=== PATIENT | male | born 1970 | race American Indian/Alaskan Native ===

== ENCOUNTER 2018-03-27 00:54 | Emergency (ER) | payer MEDICARE, MEDICAID ==
[2018-03-27 01:04] VITALS: BMI 38.3
--- NOTE | 2018-03-27 01:35 | ED PDOC ---
Arrival/HPI <Duc Talamantes - Last Filed: 03/27/18 01:58> <Muna Pedraza - Last Filed: 03/27/18 06:25> - General Chief Complaint: Allergic Reaction Time Seen by Provider: 03/27/18 00:59 - History of Present Illness Narrative History of Present Illness (Text): 48 year old with PMH of liver transplant in 2012 due to sarcoidosis, lisinopril medication for one month, HTN, HLD, and diabetes presents with facial swelling involving his lips and left jaw. Patient reports that he picked up an e- cigarette from under his car when his girlfriend dropped it, and he took one hit of the e cigarette around 7:00PM today. He reports that immediately after, he started to have some facial swelling. He did not eat any food prior to this episode but had some chicken after the swelling began. Patient takes tacrolimus for liver transplant. Patient denies any shortness of breath, stridor, swelling , skin rashes, chest pain, heart palpitations, nausea, vomiting, constipation, diarrhea, dysuria, and hematuria. He notes minimal numbness of the swollen area of his face. (Muna Pedraza) Past Medical History - Provider Review Nursing Documentation Reviewed: Yes - Cardiac Hx Cardiac Disorders: Yes Hx Hypertension: Yes - Pulmonary Hx Asthma: Yes - Neurological Hx Neurological Disorder: No - HEENT Hx HEENT Disorder: No - Endocrine/Metabolic Other/Comment: sarcoidosis;. hyperglycemia secondary to prednisone, condition resolved - Hematological/Oncological Hx Blood Disorders: No - Integumentary Hx Dermatological Disorder: No - Musculoskeletal/Rheumatological Hx Musculoskeletal Disorders: No - Gastrointestinal Hx Gastrointestinal Disorders: Yes Hx Liver Failure: Yes - Genitourinary/Gynecological Hx Genitourinary Disorders: No - Psychiatric Hx Psychophysiologic Disorder: No Hx Substance Use: No - Surgical History Hx Liver Transplant: Yes (2012) Hx Splenectomy: Yes Other/Comment: LIVER TRANSPLANT s/p sarcoidosis; HERNIA REPAIR. - Anesthesia Hx Anesthesia: Yes Hx Anesthesia Reactions: No - Suicidal Assessment Feels Threatened In Home Enviroment: No <Muna Pedraza - Last Filed: 03/27/18 06:25> Family/Social History - Physician Review Nursing Documentation Reviewed: Yes Family/Social History: Unknown Family HX Smoking Status: Never Smoked Hx Alcohol Use: No (quit social drinking) Hx Substance Use: No <KianeverettmarleneRajeevdai - Last Filed: 03/27/18 06:25> Allergies/Home Meds <JohannyeddDuc - Last Filed: 03/27/18 01:58> <KianeverettmarleneDenisamanju - Last Filed: 03/27/18 06:25> Allergies/Adverse Reactions: Allergies Iodinated Contrast- Oral and IV Dye [Iodinated Contrast Media - IV Dye] Allergy (Verified 03/27/18 01:04) ANAPHYLAXIS Home Medications: Home Meds Medication Instructions Recorded Confirmed Albuterol Sulfate [Proair Hfa] 2 puff NEB PRN PRN 11/04/14 01/06/15 Mycophenolate [Cellcept Cap] 250 mg PO BID 11/04/14 01/06/15 Pravastatin Sodium [Pravastatin] 80 mg PO DAILY 11/04/14 01/06/15 Prednisone [Prednisone] 2 mg PO 2XW 11/04/14 01/06/15 Tacrolimus [Tacrolimus] 1 mg PO BID 11/04/14 01/06/15 amLODIPine [Norvasc] 5 mg PO DAILY 11/04/14 01/06/15 Review of Systems - Physician Review All systems were reviewed & negative as marked: Yes - Review of Systems Constitutional: Normal Eyes: Normal ENT: Other (swelling of both lips and left jaw) Respiratory: Normal. absent: SOB, Cough (no cough, no SOB) Cardiovascular: Normal Gastrointestinal: Normal Musculoskeletal: Normal Skin: Normal Neurological: Normal <KeilaDenisamanju - Last Filed: 03/27/18 06:25> Physical Exam <VinitaDuc - Last Filed: 03/27/18 01:58> Vital Signs Reviewed: Yes Temperature: Afebrile Blood Pressure: Normal Pulse: Regular Respiratory Rate: Normal Appearance: Positive for: Well-Appearing Pain Distress: Mild Mental Status: Positive for: Alert and Oriented X 3 - Systems Exam Head: Present: Atraumatic, Normocephalic Pupils: Present: PERRL Extroacular Muscles: Present: EOMI Mouth: Present: Normal Tounge, Other (swollen left jaw). No: Drooling, Normal Lips (swollen lips) Pharnyx: No: TONSILS ENLARGED, Peritonsilar Swelling, Muffled/Hoarse Voice, Strider Nose (External): Present: Atraumatic Neck: Present: Normal Range of Motion Respiratory/Chest: Present: Clear to Auscultation, Good Air Exchange Cardiovascular: Present: Regular Rate and Rhythm Abdomen: Present: Normal Bowel Sounds, Scars (upper abdomen from liver transplant surgery). No: Tenderness, Distention Upper Extremity: Present: Normal Inspection, Normal ROM, NORMAL PULSES Lower Extremity: Present: Normal Inspection, NORMAL PULSES, Normal ROM Neurological: Present: GCS=15, CN II-XII Intact, Speech Normal, Motor Func Grossly Intact, Normal Sensory Function Skin: Present: Other (inflammation of lips and left side of face) Psychiatric: Present: Alert, Oriented x 3 <Muna Pedraza - Last Filed: 03/27/18 06:25> Vital Signs Temp Pulse Resp BP Pulse Ox 03/27/18 05:56 76 18 117/70 98 03/27/18 01:56 98.9 F 97 H 18 137/92 H 100 Medical Decision Making <Duc Talamantes - Last Filed: 03/27/18 01:58> <Muna Pedraza - Last Filed: 03/27/18 06:25> ED Course and Treatment: 03/27/18 01:58 Dustin Gamez is a 48 year old male who presents to the emergency department with a complaint of facial swelling. In agreement with resident note, which includes further HPI details. Patient was seen and evaluated with resident, came up with plan and treatment together. (Duc Talamantes) Impression: 48 year old male presents with swollen lips and left sided facial pain. Assessment: Grant inhibitor induced angioedema Rule out allergies, other causes of angioedema. Doubt anaphylaxis. Plan: Atarax 25 mg has been prescribed to reduce the swelling. Once he has taken the medication, he will be reevaluated for improvement. 03/27/18 04:16 Atarax did not seem to improve symptoms. Benadryl and pepcid did not relieve symptoms either. After extensive discussion with patient, we will start methylprednisone 125 mg to help reduce the swelling. 03/27/18 06:22 Patient's symptoms have mildly improved. Patient will be discharged with prednisone 20 TID, pepcid 20 BID, and atarax 25 mg TID since he has not had any respiratory symptoms. Patient should follow up with his PCP and stop taking lisinopril. (Muna Pedraza) - Medication Orders Current Medication Orders: Discontinued Medications Diphenhydramine HCl (Benadryl) 25 mg IVP STAT STA Stop: 03/27/18 02:39 Last Admin: 03/27/18 02:57 Dose: 25 mg IVP Administration Document 03/27/18 02:57 SS (Rec: 03/27/18 02:57 SS [id number]) Charges for Administration # of IVP Administrations 1 Famotidine (Pepcid) 20 mg IVP STAT STA Stop: 03/27/18 02:41 Last Admin: 03/27/18 02:57 Dose: 20 mg IVP Administration Document 03/27/18 02:57 SS (Rec: 03/27/18 02:57 SS [id number]) Charges for Administration # of IVP Administrations 1 Hydroxyzine HCl (Atarax) 25 mg PO Q6H PRN PRN Reason: ANGIOEDEMA Hydroxyzine HCl (Atarax) 25 mg PO STAT STA Stop: 03/27/18 01:52 Last Admin: 03/27/18 01:35 Dose: 25 mg Methylprednisolone (Solu-Medrol) 125 mg IVP STAT STA Stop: 03/27/18 04:16 Last Admin: 03/27/18 04:40 Dose: 125 mg - Scribe Statement The provider has reviewed the documentation as recorded by the Scribe <Duc Talamantes - Last Filed: 03/27/18 01:58> - PA / HEALTH PROMOTION COORDINATOR / Resident Statement MD/DO has reviewed & agrees with the documentation as recorded. MD/DO has examined the patient and agrees with the treatment plan. <Muna Pedraza - Last Filed: 03/27/18 06:25> - Scribe Statement Fabiola Rivas Provider Scribe Attestation: All medical record entries made by the Scribe were at my direction and personally dictated by me. I have reviewed the chart and agree that the record accurately reflects my personal performance of the history, physical exam, medical decision making, and the department course for this patient. I have also personally directed, reviewed, and agree with the discharge instructions and disposition. (Duc Talamantes) Disposition/Present on Arrival <Duc Talamantes - Last Filed: 03/27/18 01:58> - Present on Arrival Any Indicators Present on Arrival: No History of DVT/PE: No History of Uncontrolled Diabetes: No Urinary Catheter: No History of Decub. 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 Your provider was Duc Talamantes MD and Muna Pedraza DO and you were treated for FACIAL SWELLING. The emergency medical care you received today was directed at your acute symptoms. You were diagnosed with angioedema due to taking lisinopril. You were given atarax 25 mg, pepcid, benadryl, and methylprednisone. It may take several days for your symptoms to resolve. Return to the Emergency Department if your symptoms worsen, do not improve, or if you have any other problems. Stop taking your lisinopril and please contact Dr. Campo for follow up appointment as soon as possible. You will be prescribed pepcid 20 mg twice a day for five days, prednisone 20 mg three times a day for five days, and atarax 25 mg three times a day for five days. Bring any paperwork you were given at discharge with you along with any medications you are taking to your follow up visit. Our treatment cannot replace ongoing medical care by a primary care provider outside of the emergency department. Thank you for allowing the [facility] team to be part of your care today. Prescriptions: Famotidine [Pepcid] 20 mg PO BID 5 Days #10 tab hydrOXYzine HCl [Atarax] 25 mg PO Q8H 5 Days #15 tab Prednisone [Deltasone] 20 mg PO TID 5 Days #15 tablet Referrals: Phuong Campo DO [[facility]] - Follow up with primary Forms: N[employer] PDF (Wallisian)
[2018-03-27 01:57] VITALS: RESP 18; TEMP 98.9
[2018-03-27] MEDS ORDERED: DiphenhydrAMINE 50 mg/ml Inj IVP STA (02:38)
[2018-03-27 05:57] VITALS: BP 117/70; O2SAT 98
[2018-03-27 06:32] VITALS: PULSE 71
== END 2018-03-27 06:31 | disposition home or self-care (01) ==
LOC: ED 00:54
DX: T78.3XXA Angioneurotic edema, initial encounter (principal); T46.4X5A Adverse effect of angiotensin-converting-enzyme inhibitors, initial encounter; Y92.9 Unspecified place or not applicable; Z94.4 Liver transplant status
CPT/HCPCS: 96374; 96375; 99283; J1200; J2930

== ENCOUNTER 2019-01-07 18:19 | Inpatient (IN) | payer OTHER ==
[2019-01-07 18:20] VITALS: BMI 38.3
--- NOTE | 2019-01-07 18:50 | ED PDOC ---
Arrival/HPI - General Chief Complaint: Dental Pain Time Seen by Provider: 01/07/19 18:31 Historian: Patient - History of Present Illness Narrative History of Present Illness (Text): 01/07/19 18:45 48 year old male whose past medical history includes liver transplant in 2012 due to sarcoidosis, HTN on lisinopril, HLD, and diabetes presents complaining of lower lip swelling that began today. Patient reports he bit his lip twice today before noticing the swelling. Patient reports he had similar symptoms in the past. Per past notes from previous visit 03/27/18, patient was seen for facial swelling involving this lips and left jaw where he has been taking Lisinopril for one month. Patient was diagnosed with angioedema and told to discontinue taking lisinopril. Patient denies any fever, chills, chest pain, shortness of breath, nausea, vomiting, diarrhea, urinary symptoms, back pain, neck pain, headache, dizziness, or any other complaints. PMD: Dr. Campo Time/Duration: Other (today) Symptom Onset: Gradual Symptom Course: Unchanged Activities at Onset: Light Past Medical History - Provider Review Nursing Documentation Reviewed: Yes Primary Care Provider: Phuong Campo V - Infectious Disease Hx of Infectious Diseases: None - Cardiac Hx Cardiac Disorders: Yes Hx Hypertension: Yes - Pulmonary Hx Asthma: Yes - Neurological Hx Neurological Disorder: No - HEENT Hx HEENT Disorder: No - Endocrine/Metabolic Other/Comment: sarcoidosis;. hyperglycemia secondary to prednisone, condition resolved - Hematological/Oncological Hx Blood Disorders: No - Integumentary Hx Dermatological Disorder: No - Musculoskeletal/Rheumatological Hx Musculoskeletal Disorders: No - Gastrointestinal Hx Gastrointestinal Disorders: Yes Hx Liver Failure: Yes - Genitourinary/Gynecological Hx Genitourinary Disorders: No - Psychiatric Hx Psychophysiologic Disorder: No Hx Substance Use: No - Surgical History Hx Liver Transplant: Yes (2012) Hx Splenectomy: Yes Other/Comment: LIVER TRANSPLANT s/p sarcoidosis; HERNIA REPAIR. Splenectomy - Anesthesia Hx Anesthesia: Yes Hx Anesthesia Reactions: No - Suicidal Assessment Feels Threatened In Home Enviroment: No Family/Social History - Physician Review Nursing Documentation Reviewed: Yes Family/Social History: No Known Family HX Smoking Status: Never Smoked Hx Alcohol Use: No (quit social drinking) Hx Substance Use: No Allergies/Home Meds Allergies/Adverse Reactions: Allergies Iodinated Contrast- Oral and IV Dye [Iodinated Contrast Media - IV Dye] Allergy (Verified 01/07/19 18:27) ANAPHYLAXIS Home Medications: Home Meds Medication Instructions Recorded Confirmed Albuterol Sulfate [Proair Hfa] 2 puff NEB PRN PRN 11/04/14 01/06/15 Mycophenolate [Cellcept Cap] 250 mg PO BID 11/04/14 01/06/15 Pravastatin Sodium [Pravastatin] 80 mg PO DAILY 11/04/14 01/06/15 Prednisone 2 mg PO 2XW 11/04/14 01/06/15 Tacrolimus 1 mg PO BID 11/04/14 01/06/15 amLODIPine [Norvasc] 5 mg PO DAILY 11/04/14 01/06/15 Review of Systems - Physician Review All systems were reviewed & negative as marked: Yes - Review of Systems Constitutional: absent: Fevers, Other (chills) Respiratory: absent: SOB Cardiovascular: absent: Chest Pain Gastrointestinal: absent: Diarrhea, Nausea, Vomiting Genitourinary Male: absent: Dysuria, Frequency, Hematuria Musculoskeletal: absent: Back Pain, Neck Pain Skin: Other (swelling to the lower lips) Neurological: absent: Headache, Dizziness Physical Exam Vital Signs Reviewed: Yes Vital Signs Temp Pulse Resp BP Pulse Ox 01/07/19 18:30 98.3 F 89 18 139/84 97 Temperature: Afebrile Blood Pressure: Normal Pulse: Regular Respiratory Rate: Normal Appearance: Positive for: Well-Appearing, Non-Toxic, Comfortable Pain Distress: None Mental Status: Positive for: Alert and Oriented X 3 - Systems Exam Head: Present: Atraumatic, Normocephalic, Swelling (swelling to the left lower lip) Pupils: Present: PERRL Extroacular Muscles: Present: EOMI Conjunctiva: Present: Normal Mouth: Present: Moist Mucous Membranes Pharnyx: No: Other (swelling) Neck: Present: Normal Range of Motion Respiratory/Chest: Present: Clear to Auscultation, Good Air Exchange. No: Respiratory Distress, Accessory Muscle Use Cardiovascular: Present: Regular Rate and Rhythm, Normal S1, S2. No: Murmurs Abdomen: No: Tenderness, Distention, Peritoneal Signs Back: Present: Normal Inspection Upper Extremity: Present: Normal Inspection. No: Cyanosis, Edema Lower Extremity: Present: Normal Inspection. No: Edema Neurological: Present: GCS=15, Speech Normal Skin: Present: Warm, Dry, Normal Color. No: Rashes Psychiatric: Present: Alert, Oriented x 3, Normal Insight, Normal Concentration Medical Decision Making ED Course and Treatment: 01/07/19 18:54 Impression: 48 year old male presents complaining of lower left lip pain that began today Plan: -- Benadryl. Pepcid, Prednisone tab -- Reassess and disposition Prior Visits: Notes and results from previous visits were reviewed. Progress Notes: Patient refuses IV medication. Advised patient again to stop taking lisinopril. 01/07/19 20:44 pt now agrees to iv, and further obs and swelling unchanges. still phonating well in ner. seen by icu not candidate. 01/07/19 20:[address] updated pmd k normal stable for floor. - Medication Orders Current Medication Orders: Discontinued Medications Diphenhydramine HCl (Benadryl) 50 mg PO STAT STA Stop: 01/07/19 18:39 Famotidine (Pepcid) 20 mg PO STAT STA Stop: 01/07/19 18:39 Prednisone (Prednisone Tab) 50 mg PO STAT STA Stop: 01/07/19 18:39 - Scribe Statement The provider has reviewed the documentation as recorded by the Jerrod Pathak Provider Scribe Attestation: All medical record entries made by the Amandeepibmarlene were at my direction and personally dictated by me. I have reviewed the chart and agree that the record accurately reflects my personal performance of the history, physical exam, medical decision making, and the department course for this patient. I have also personally directed, reviewed, and agree with the discharge instructions and disposition. Disposition/Present on Arrival - Present on Arrival Any Indicators Present on Arrival: No History of DVT/PE: No History of Uncontrolled Diabetes: No Urinary Catheter: No History of Decub. Ulcer: No History Surgical Site Infection Following: None - Disposition Have Diagnosis and Disposition been Completed?: Yes Diagnosis: Renal insufficiency, Angioedema Disposition: HOSPITALIZED Disposition Time: 20:00 Condition: STABLE
[2019-01-07 20:29] LABS: BASO # 0.04 K/mm3 (0.0-2.0); BASO % 0.4 % (0.0-3.0); EOS # 0.4 (0.0-0.7); HEMOGLOBIN 12.5 g/dL (14.0-18.0); LYMPH # 4.6 (1.2-3.4); LYMPH % 43.1 % (22.0-35.0); MEAN CELL VOLUME 88.6 fl (80.0-105.0); MEAN CORPUSCULAR HEMOGLOBIN 29.6 pg (25.0-35.0); MEAN CORPUSCULAR HGB CONC 33.4 g/dl (31.0-37.0); MEAN PLATELET VOLUME 10.7 fl (7.0-11.0); MONO # 0.6 (0.1-0.6); MONO % 5.5 % (1.0-6.0); RBC 4.22 10^6/uL (3.5-6.1); RED CELL DISTRIBUTION WIDTH 14.9 % (11.5-14.5); WHITE BLOOD COUNT 10.7 10^3/uL (4.5-11.0)
[2019-01-07 20:39] LABS: ALB/GLOB RATIO 1.3 (1.1-1.8); ALBUMIN 4.3 g/dL (3.0-4.8); CALCIUM 9.1 mg/dL (8.4-10.5)
[2019-01-07 20:40] LABS: INR 0.9
--- NOTE | 2019-01-07 21:43 | CP.PCM.CON ---
<Jeromy Hawkins - Last Filed: 01/07/19 22:01> History of Present Illness - History of Present Illness History of Present Illness: Jeromy Hawkins DO PGY-1 ICU Consult Note for Dr. Ro Reason for consult: lower lip angioedema 48 y/o male with PMH of liver transplant in 2012 due to sarcoidosis, HTN on lisinopril, HLD, DM2 presents with left lower lip swelling that began today. Patient reports that he bite his lower lip today and went for a nap then woke up with lower lip swelling. He denies stridor, SOB, CP, speech difficulty, sore throat. Patient is on lisinopril daily for HTN. As per EMR, patient had similar episode last year and discharged home from ED with PO steroids. He denies dizziness, palpitations, fever, chills, neck stiffness, GI/ symptoms, recent sickness/sick contacts. In the ED: Patient received Benadryl 50, Pepcid, Prednisone 50 tab. Patient refuses IV medi cation. Vitals stable, patient asymptomatic 12 points ROS reviewed and otherwise negative PMHx: as above PSHx: liver transplant, splenectomy, hernia repair FH: father- germ cell tumor, DM Soc: denies ETOH, tobacco, illicit drug use Allergies: iodinated contrast Home Rx: as per EMR Past Patient History - Infectious Disease Hx of Infectious Diseases: None - Past Social History Smoking Status: Never Smoked - CARDIAC Hx Cardiac Disorders: Yes Hx Hypertension: Yes - PULMONARY Hx Asthma: Yes - NEUROLOGICAL Hx Neurological Disorder: No - HEENT Hx HEENT Problems: No - ENDOCRINE/METABOLIC Other/Comment: sarcoidosis;. hyperglycemia secondary to prednisone, condition resolved - HEMATOLOGICAL/ONCOLOGICAL Hx Blood Disorders: No - INTEGUMENTARY Hx Dermatological Problems: No - MUSCULOSKELETAL/RHEUMATOLOGICAL Hx Musculoskeletal Disorders: No - GASTROINTESTINAL Hx Gastrointestinal Disorders: Yes Hx Liver Failure: Yes - GENITOURINARY/GYNECOLOGICAL Hx Genitourinary Disorders: No - PSYCHIATRIC Hx Psychophysiologic Disorder: No Hx Substance Use: No - SURGICAL HISTORY Hx Liver Transplant: Yes (2012) Hx Splenectomy: Yes Other/Comment: LIVER TRANSPLANT s/p sarcoidosis; HERNIA REPAIR. Splenectomy - ANESTHESIA Hx Anesthesia: Yes Hx Anesthesia Reactions: No Meds Allergies/Adverse Reactions: Allergies Allergy/AdvReac Type Severity Reaction Status Date / Time Iodinated Contrast- Oral and Allergy ANAPHYLAXIS Verified 01/07/19 18:27 IV Dye [Iodinated Contrast Media - IV Dye] lisinopril Allergy ANGIOEDEMA Verified 01/08/19 07:21 Physical Exam - Constitutional Appears: Well, Non-toxic, No Acute Distress - Head Exam Head Exam: ATRAUMATIC, NORMAL INSPECTION, NORMOCEPHALIC Additional comments: left lower lip swelling. no oropharyngeal edema. no tongue edema - Eye Exam Eye Exam: EOMI, Normal appearance, PERRL Pupil Exam: NORMAL ACCOMODATION, PERRL - ENT Exam ENT Exam: Mucous Membranes Moist, Normal Exam - Neck Exam Neck exam: Positive for: Full Rom, Normal Inspection. Negative for: Lym phadenopathy, Thyromegaly - Respiratory Exam Respiratory Exam: Clear to Auscultation Bilateral, NORMAL BREATHING PATTERN. absent: Rales, Rhonchi, Wheezes, Respiratory Distress, Stridor - Cardiovascular Exam Cardiovascular Exam: REGULAR RHYTHM, +S1, +S2. absent: Gallop, Rubs - GI/Abdominal Exam GI & Abdominal Exam: Normal Bowel Sounds, Soft. absent: Guarding, Mass, Rebound, Tenderness - Extremities Exam Extremities exam: Positive for: normal inspection - Back Exam Back exam: NORMAL INSPECTION - Neurological Exam Neurological exam: Alert, CN II-XII Intact, Normal Gait, Oriented x3, Reflexes Normal - Psychiatric Exam Psychiatric exam: Normal Affect, Normal Mood - Skin Skin Exam: Dry, Intact, Normal Color, Warm Additional comments: lower lip swelling Results - Vital Signs Recent Vital Signs: Last Vital Signs Temp 98.3 F 01/07/19 18:30 Pulse 76 01/07/19 20:07 Resp 18 01/07/19 20:07 BP 156/97 H 01/07/19 20:07 Pulse Ox 99 01/07/19 20:07 - Labs Result Diagrams: 01/07/19 20:24 01/07/19 20:24 Labs: Laboratory Results - last 24 hr 01/07/19 01/07/19 01/07/19 20:24 20:24 20:24 WBC 10.7 RBC 4.22 Hgb 12.5 L Hct 37.4 L MCV 88.6 MCH 29.6 MCHC 33.4 RDW 14.9 H Plt Count 449 MPV 10.7 Neut % (Auto) 47.0 L Lymph % (Auto) 43.1 H Villalba % (Auto) 5.5 Eos % (Auto) 4.0 Baso % (Auto) 0.4 Lymph # (Auto) 4.6 H Villalba # (Auto) 0.6 Eos # (Auto) 0.4 Baso # (Auto) 0.04 Absolute Neuts (auto) 5.00 INR 0.90 APTT 37.9 Sodium 138 Potassium 4.6 Chloride 106 Carbon Dioxide 23 Anion Gap 14 BUN 43 H Creatinine 2.6 H Est GFR ( Amer) 32 Est GFR (Non-Af Amer) 27 Random Glucose 92 Calcium 9.1 Total Bilirubin 0.5 AST 39 ALT 15 Alkaline Phosphatase 56 Total Protein 7.7 Albumin 4.3 Globulin 3.4 Albumin/Globulin Ratio 1.3 Assessment & Plan - Assessment and Plan (Free Text) Assessment: 48 y/o male with PMH of liver transplant in 2012 due to sarcoidosis, HTN on lisinopril, HLD, DM2 presents with left lower lip swelling x1 day. Plan: Left lower lip angioedema: -patient on lisinopril, hemodynamically stable, no tongue/oropharngeal edema, no stridor, no SOB -received benadryl 50, oral prednisone 50. refused IV steroids -recommend allergy testing as outpatient for JUAN CARLOS/ARB sensitivity and C1-esterase inhibitor -continue to observe on the floor. patient does not need ICU at this time. -please re-consult if needed. Case reviewed and plan discussed with attending Dr Jayjay Hawkins, <Nick Ro - Last Filed: 01/09/19 06:03> Results - Vital Signs Recent Vital Signs: Last Vital Signs Temp 97.7 F 01/08/19 14:00 Pulse 84 01/08/19 14:00 Resp 20 01/08/19 14:00 BP 135/80 01/08/19 14:00 Pulse Ox 94 L 01/08/19 14:00 - Labs Result Diagrams: 01/07/19 20:24 01/07/19 20:24 Attending/Attestation - Attestation I have personally seen and examined this patient.: Yes I have fully participated in the care of the patient.: Yes I have reviewed all pertinent clinical information: Yes Notes (Text): 01/09/19 06:01 Seen and examined. Discussed with resident. Does not meet ICU admission criteria at this time. add JUAN CARLOS I and ARB to allergy list.
[2019-01-07 22:00] LABS: PARTIAL THROMBOPLASTIN TIME 37.9 Seconds (26.9-38.3)
[2019-01-08] MEDS ORDERED: DiphenhydrAMINE 50 mg/ml Inj IVP ONE (02:11)
[2019-01-08 07:50] VITALS: RESP 20; TEMP 97.7
[2019-01-08] MEDS ORDERED: Metoprolol Succinate 25 mg XL Tab PO SCH (10:00)
[2019-01-08] MEDS ORDERED: Magnesium Oxide 400 mg Tab UD PO SCH (10:00)
[2019-01-08] MEDS ORDERED: MethylPREDNISolone 40 mg Vial IVP ONE (13:00)
--- NOTE | 2019-01-08 15:41 | CP.PCM.HP ---
<Petr Whiting - Last Filed: 01/08/19 15:28> History of Present Illness - History of Present Illness History of Present Illness: H&P for Dr. Gaspar Service CC: Lip swelling HPI: 49 M with a PMHx of sarcoidosis, liver transplant on immunosuppressants, CKD 3, HTN, HLD, DM2 with neuropathy presented to the [facility] ED with complaints of lower lip swelling. Patient states that he has had this reaction before, however was more sever previously. Patient noted that he bit his lip yesterday while eating, noticed his lower lip swell mildly, took a nap and woke up to the entirety of his lower lip being swollen. He noted that he was previously stopped on his lisinopril after his last episode of angioedema, and started on norvasc. However, was restarted on lisinopril by a wrapper cashier he is unsure of roughly a month an a half ago. Patient admitted to pruritis, however denied fever, chills shortness of breath, chest pains, nausea, vomiting, diarrhea, constipation or dysuria. PMHx: sarcoidosis, liver transplant on immunosuppressants, CKD 3, HTN, HLD, DM2 with neuropathy, angioedema PSHx: Liver transplant SHx: Denied tobacco/etoh/ or illicit drug use Famhx: Father-germ cell tumor Meds: MAR Reviewed Alergies: Lisinopril, iodinated contract Present on Admission - Present on Admission Any Indicators Present on Admission: No Review of Systems - Review of Systems Review of Systems: as per HPI otherwise negative Past Patient History - Infectious Disease Hx of Infectious Diseases: None - Past Social History Smoking Status: Never Smoked - CARDIAC Hx Cardiac Disorders: Yes Hx Hypertension: Yes - PULMONARY Hx Asthma: Yes - NEUROLOGICAL Hx Neurological Disorder: No - HEENT Hx HEENT Problems: No - RENAL Hx Chronic Kidney Disease: No - ENDOCRINE/METABOLIC Hx Endocrine Disorders: Yes Other/Comment: sarcoidosis;. hyperglycemia secondary to prednisone, condition resolved - HEMATOLOGICAL/ONCOLOGICAL Hx Blood Disorders: No - INTEGUMENTARY Hx Dermatological Problems: No - MUSCULOSKELETAL/RHEUMATOLOGICAL Hx Musculoskeletal Disorders: No Hx Falls: No - GASTROINTESTINAL Hx Gastrointestinal Disorders: Yes Hx Liver Failure: Yes Other/Comment: liver transplant 2013 - GENITOURINARY/GYNECOLOGICAL Hx Genitourinary Disorders: No - PSYCHIATRIC Hx Psychophysiologic Disorder: No Hx Substance Use: No - SURGICAL HISTORY Hx Liver Transplant: Yes (2012) Hx Splenectomy: Yes Other/Comment: LIVER TRANSPLANT s/p sarcoidosis; HERNIA REPAIR. Splenectomy - ANESTHESIA Hx Anesthesia: Yes Hx Anesthesia Reactions: No Meds Home Medications: Home Medication List Medication Instructions Recorded Confirmed Type Famotidine [Pepcid] 20 mg PO BID tab 01/08/19 Rx Gabapentin [Neurontin] 300 mg PO TID PRN cap 01/08/19 Rx Glimepiride [amaRYL] 1 mg PO QPM tab 01/08/19 Rx Glimepiride [amaRYL] 2 mg PO QAM tab 01/08/19 Rx Mycophenolate [Cellcept Cap] 250 mg PO BID cap 01/08/19 Rx Tacrolimus [Prograf Cap] 1 mg PO QPM cap 01/08/19 Rx Tacrolimus [Prograf Cap] 2 mg PO QAM cap 01/08/19 Rx amLODIPine [Norvasc] 5 mg PO DAILY #30 tab 01/08/19 Rx Allergies/Adverse Reactions: Allergies Allergy/AdvReac Type Severity Reaction Status Date / Time Iodinated Contrast- Oral and Allergy ANAPHYLAXIS Verified 01/07/19 18:27 IV Dye [Iodinated Contrast Media - IV Dye] lisinopril Allergy ANGIOEDEMA Verified 01/08/19 07:21 Physical Exam - Constitutional Appears: No Acute Distress - Head Exam Head Exam: ATRAUMATIC, NORMAL INSPECTION, NORMOCEPHALIC - Eye Exam Eye Exam: EOMI, Normal appearance, PERRL Pupil Exam: NORMAL ACCOMODATION, PERRL - ENT Exam ENT Exam: Mucous Membranes Moist, Normal Exam Additional comments: + lower lip swelling - Neck Exam Neck exam: Positive for: Normal Inspection - Respiratory Exam Respiratory Exam: Clear to Auscultation Bilateral, NORMAL BREATHING PATTERN. absent: Rhonchi, Wheezes, Respiratory Distress, Stridor - Cardiovascular Exam Cardiovascular Exam: REGULAR RHYTHM, +S1, +S2 - GI/Abdominal Exam GI & Abdominal Exam: Normal Bowel Sounds, Soft. absent: Tenderness - Neurological Exam Neurological exam: Alert, CN II-XII Intact, Normal Gait, Oriented x3, Reflexes Normal - Psychiatric Exam Psychiatric exam: Normal Affect, Normal Mood - Skin Skin Exam: Dry, Intact, Normal Color, Warm Results - Vital Signs Recent Vital Signs: Last Vital Signs Temp 97.7 F 01/08/19 06:00 Pulse 92 H 01/08/19 06:00 Resp 20 01/08/19 06:00 BP 121/56 L 01/08/19 12:52 Pulse Ox 97 01/08/19 06:00 - Labs Result Diagrams: 01/07/19 20:24 01/07/19 20:24 Labs: Laboratory Results - last 24 hr 01/07/19 01/07/19 01/07/19 20:24 20:24 20:24 WBC 10.7 RBC 4.22 Hgb 12.5 L Hct 37.4 L MCV 88.6 MCH 29.6 MCHC 33.4 RDW 14.9 H Plt Count 449 MPV 10.7 Neut % (Auto) 47.0 L Lymph % (Auto) 43.1 H Mclean % (Auto) 5.5 Eos % (Auto) 4.0 Baso % (Auto) 0.4 Lymph # (Auto) 4.6 H Mclean # (Auto) 0.6 Eos # (Auto) 0.4 Baso # (Auto) 0.04 Absolute Neuts (auto) 5.00 PT 10.0 INR 0.90 APTT 37.9 Sodium 138 Potassium 4.6 Chloride 106 Carbon Dioxide 23 Anion Gap 14 BUN 43 H Creatinine 2.6 H Est GFR ( Amer) 32 Est GFR (Non-Af Amer) 27 Random Glucose 92 Calcium 9.1 Total Bilirubin 0.5 AST 39 ALT 15 Alkaline Phosphatase 56 Total Protein 7.7 Albumin 4.3 Globulin 3.4 Albumin/Globulin Ratio 1.3 Assessment & Plan - Assessment and Plan (Free Text) Assessment: angioedema 2/2 lisinopril liver transplant on immunosuppressants Sarcoidosis CKD 3 HTN HLD DM2 with neuropathy anemia Plan: Patient is comfortable, with improving lower lip swelling. Patient started on antihistamine and steroid therapy with good effect. Patient discontinued lisinopril, continue norvasc and metoprolol for HTN. Patient is to continue prograf and mycophenolate s/p liver transplant 2/2 sarcoidosis. Patient's CKD is stable, may be exacerbated by prograf. Atorvastatin for dyslipidemia, Patient on gabapentin for diabetic neuropathy and on glipizide for DM, metformin held. Anemia likely 2/2 CKD. <Hudson Gaspar - Last Filed: 01/08/19 16:19> Results - Vital Signs Recent Vital Signs: Last Vital Signs Temp 97.7 F 01/08/19 14:00 Pulse 84 01/08/19 14:00 Resp 20 01/08/19 14:00 BP 135/80 01/08/19 14:00 Pulse Ox 94 L 01/08/19 14:00 - Labs Result Diagrams: 01/07/19 20:24 01/07/19 20:24 Labs: Laboratory Results - last 24 hr 01/07/19 01/07/19 01/07/19 20:24 20:24 20:24 WBC 10.7 RBC 4.22 Hgb 12.5 L Hct 37.4 L MCV 88.6 MCH 29.6 MCHC 33.4 RDW 14.9 H Plt Count 449 MPV 10.7 Neut % (Auto) 47.0 L Lymph % (Auto) 43.1 H Mclean % (Auto) 5.5 Eos % (Auto) 4.0 Baso % (Auto) 0.4 Lymph # (Auto) 4.6 H Mclean # (Auto) 0.6 Eos # (Auto) 0.4 Baso # (Auto) 0.04 Absolute Neuts (auto) 5.00 PT 10.0 INR 0.90 APTT 37.9 Sodium 138 Potassium 4.6 Chloride 106 Carbon Dioxide 23 Anion Gap 14 BUN 43 H Creatinine 2.6 H Est GFR ( Amer) 32 Est GFR (Non-Af Amer) 27 Random Glucose 92 Calcium 9.1 Total Bilirubin 0.5 AST 39 ALT 15 Alkaline Phosphatase 56 Total Protein 7.7 Albumin 4.3 Globulin 3.4 Albumin/Globulin Ratio 1.3 Assessment & Plan - Assessment and Plan (Free Text) Assessment: Pt seen and examined by me. I have reviewed the note of the medical billing and coding specialist and I agree with it. I have discussed the assessment and plan with the resident. I have reviewed the medications and the last labs. Pt with angioedema due to Lisiponril. Pt was advised to stop taking the medication. I have asked Dr Lozano to evaluate as she is her mounter smoking pipe. He has CKD-3. Pt is on Glipizide for his DM-2. He has hx of Liver Tx due to Sarcoidosis. He is on Norvasc for HTN. He has Diabetic neuropathy and is on Gabapentin.
[2019-01-08 16:17] VITALS: BP 135/80; PULSE 84; O2SAT 94
--- NOTE | 2019-01-09 04:39 | CON ---
DATE: 01/08/2019 REASON FOR CONSULTATION: Angioedema secondary to JUAN CARLOS inhibitor. HISTORY OF PRESENT ILLNESS: A 48-year-old young male presented to the emergency room yesterday with complaints of swelling of his lower lip. He reports that he was eating. He caught his lower lip. Subsequently 2 hours later, he noted that his whole lower lip was swollen. Swelling progressively increased. He came to the emergency room. He reports that something similar had happened to him in 03/2018 also. He was told to stop his JUAN CARLOS inhibitor, but his jewelry bench worker advised him to continue the JUAN CARLOS inhibitor and in fact increased the dose. He denies any difficulty breathing right now, but he did have some choking sensation earlier. In the emergency room, his blood pressure was 139/84 initially. His heart rate was 89. He was afebrile. His laboratory data showed BUN of 43 and creatinine of 2.6, unclear what his baseline creatinine is. His amlodipine was continued as 5 mg daily. His lisinopril was discontinued. PAST MEDICAL AND SURGICAL HISTORY: Severe hypertension, steroid-induced diabetes, sarcoidosis of the liver, liver transplant many years ago, chronic kidney disease stage III, and history of angioedema in 03/2018. FAMILY HISTORY: Hypertension. SOCIAL HISTORY: No smoking. No alcohol use. No IV drug abuse. ALLERGIES: LISINOPRIL. CURRENT MEDICATIONS: Amaryl 2 mg in a.m. and 1 mg in p.m., Benadryl 25, CellCept 500 b.i.d., aspirin 81, Lasix 20, Lipitor 10, gabapentin 300 t.i.d., amlodipine 5, Pepcid 20, Plavix 75, pravastatin, Prograf 2 mg in a.m. and 1 mg in p.m., and Solu-Medrol. ASSESSMENT: 1. Severe angioedema likely related to JUAN CARLOS inhibitor. 2. Hypertension. 3. History of liver transplant. 4. History of chronic kidney disease stage III. 5. Posttransplant diabetes. PLAN: 1. Agree with discontinuation of lisinopril. 2. Continue amlodipine. 3. Continue beta-viktoriya. 4. May need to increase dose of amlodipine to control blood pressure adequately. 5. Continue medications. 6. Steroid taper. 7. Continue antirejection meds. 8. Followup as outpatient. Kiera Lozano MD [facility] # [id number]
== END 2019-01-08 18:12 | disposition home or self-care (01) | DRG 916 ==
LOC: ED 18:19 → ERH 20:43 → 5RSO 22:55
PROVIDERS: ADMIT Internal Medicine Nephrology; ATTEND Internal Medicine Nephrology
DX: T78.3XXA Angioneurotic edema, initial encounter (principal); Z94.4 Liver transplant status; I10 Essential (primary) hypertension; E11.9 Type 2 diabetes mellitus without complications; D86.9 Sarcoidosis, unspecified; T38.0X5A Adverse effect of glucocorticoids and synthetic analogues, initial encounter; N28.9 Disorder of kidney and ureter, unspecified; D64.9 Anemia, unspecified; E09.9 Drug or chemical induced diabetes mellitus without complications; E11.22 Type 2 diabetes mellitus with diabetic chronic kidney disease; E11.40 Type 2 diabetes mellitus with diabetic neuropathy, unspecified; E78.5 Hyperlipidemia, unspecified; I12.9 Hypertensive chronic kidney disease with stage 1 through stage 4 chronic kidney disease, or unspecified chronic kidney disease; J45.909 Unspecified asthma, uncomplicated; K08.89 Other specified disorders of teeth and supporting structures; N18.3 Chronic kidney disease, stage 3 (moderate); S01.551A Open bite of lip, initial encounter; T46.4X5A Adverse effect of angiotensin-converting-enzyme inhibitors, initial encounter; Z79.84 Long term (current) use of oral hypoglycemic drugs; Z79.899 Other long term (current) drug therapy; Z83.3 Family history of diabetes mellitus; Z90.81 Acquired absence of spleen; Z87.892 Personal history of anaphylaxis; Z91.041 Radiographic dye allergy status